=== PATIENT | male | born 1955 | race Caucasian/White ===

== ENCOUNTER 2021-08-17 15:12 | Emergency (ER) | payer MEDICARE ==
[2021-08-17 16:45] LABS: BASOPHIL 0.5 % (0-2); EOSINOPHIL 2.1 % (0-7); HCT 54.5 % (42.0-52.0); HGB 15.7 g/dl (13.2-18.0); MCH 27.8 pg (25.0-31.0); MCHC 28.8 g/dL (32.0-36.0); MCV 96.5 fL (78.0-100.0); MONOCYTE 13.3 % (0-12); MPV 10.7 fL (6.0-9.5); NEUTROPHIL 71.8 % (41-80); NRBC 0; PLT 122 K/uL (150-400); RBC 5.65 M/uL (4.70-6.00); RDW 16.2 % (11.5-14.0); WBC 6.2 K/uL (4.0-10.5)
[2021-08-17 16:59] LABS: INR 1.28 (0.9-1.2); PROTHROMBIN TIME 15.6 SECONDS (11.9-13.9); PTT 31.5 SECONDS (24.9-34.6)
[2021-08-17 17:26] LABS: CORONAVIRUS 2019 SARS-COV-2 NEGATIVE (NEGATIVE); INFLUENZA A NAA NEGATIVE (NEGATIVE)
[2021-08-17 17:35] LABS: ALBUMIN 2.5 g/dL (3.4-5.0); BILIRUBIN - TOTAL 0.6 mg/dL (0.2-1.0); BUN/CREAT RATIO (CALC) 10.7 RATIO; CREATININE 4.38 mg/dL (0.67-1.17); POTASSIUM 3.7 mmol/L (3.5-5.1); TOTAL PROTEIN 6.5 g/dL (6.4-8.2)
== END 2021-08-17 19:25 | disposition other institution (70) ==
LOC: FER 15:12
PROVIDERS: Internal Medicine; Physician Assistant
DX: J44.1 Chronic obstructive pulmonary disease with (acute) exacerbation (principal); I50.9 Heart failure, unspecified; J96.22 Acute and chronic respiratory failure with hypercapnia; J96.21 Acute and chronic respiratory failure with hypoxia; N17.9 Acute kidney failure, unspecified; R77.8 Other specified abnormalities of plasma proteins; N18.30 Chronic kidney disease, stage 3 unspecified; F17.210 Nicotine dependence, cigarettes, uncomplicated; Z20.822 Contact with and (suspected) exposure to COVID-19
CPT/HCPCS: 36415; 36600; 71045; 80053; 82803; 83605; 83880; 84145; 84484; 85025; 85610; 85730; 87040; 93005; J1100; U0002